=== PATIENT | female | born 1965 | race Two or more races ===

== ENCOUNTER 2022-09-18 14:16 | Emergency (ER) | payer MEDICAID, OTHER ==
[~2022-09-18] VITALS: Ht 162.6 cm; Wt 82.0 kg
[2022-09-18] MEDS ORDERED: diphenhdrAMINE HCL 50 MG/1 ML VL IV ONE (15:30)
[2022-09-18] MEDS ORDERED: EPIN0.3I24 IJ (15:30)
[2022-09-18] MEDS ORDERED: DexAMETHasone SOD PHOS 10MG/1ML VIAL INJ IV ONE (15:30)
[2022-09-18] MEDS ORDERED: FAMOTIDINE 20 MG TAB PO ONE (15:30)
[2022-09-18 16:49] VITALS: BP 152/66; PULSE 72; RESP 20; TEMP 98.2; O2SAT 96
[2022-09-18] MEDS ORDERED: EPINEPHrine HCL 1 MG/1 ML AMP IM ONE (17:00)
[2022-09-18 17:52] LABS: Alanine Aminotransferase 39 U/L (13-56); Aspartate Aminotransferase 23 U/L (15-37)
[2022-09-18] MEDS ORDERED: HYDR-4924 PO (17:59)
== END 2022-09-18 18:10 | disposition home or self-care (01) ==
LOC: ER 14:16
DX: T78.40XA Allergy, unspecified, initial encounter (principal); Z79.899 Other long term (current) drug therapy; X58.XXXA Exposure to other specified factors, initial encounter
CPT/HCPCS: 36415; 84450; 84460; 96372; 96374; 96375; 99284; J0171; J1100; J1200